=== PATIENT | male | born 1975 | race Caucasian/White ===

== ENCOUNTER 2024-12-29 08:17 | Outpatient (AMB) | payer OTHER, SELFPAY ==
--- NOTE | 2024-12-29 08:19 | MHC.PC.OV ---
Vital Signs 12/29/24 08:29 Height 5 ft 11 in Weight 248 lb 6 oz BMI 34.6 BP 122/72 Blood Pressure Location Rt brachial Position Sitting Respiration 12 Pulse 73 Pulse Source Pulse Oximeter Temp 97.2 F Temp Source Oral Pulse Oximetry (%) 98 Oxygen Delivery Method Room Air Intake Visit Reasons: Est. Care / Requesting an Appt. PHQ-9 needed. Intake Note: New patient to establish care Regulatory Agency Director Required: No Allergies No Known Allergies Allergy (Verified 12/29/24 08:57) Medication List - Last Reviewed 12/29/24 by Shree Simons MA acetaminophen 650 mg PO Q4H PRN alcohol swabs (Alcohol Prep Pads) pad topical BID blood sugar diagnostic (FreeStyle Lite Strips) USE DIRECTED TO TEST BLOOD SUGAR TWO TIMES A DAY blood sugar diagnostic (FreeStyle Lite Strips) As directed blood-glucose meter (FreeStyle [place] Lite kit) As directed buprenorphine-naloxone 8-2 mg (Suboxone) 2 film sublingual DAILY glipizide 2.5 mg PO lancets (FreeStyle Lancets) As directed lancets (FreeStyle Lancets) As directed metformin 1,000 mg PO BID tamsulosin 0.4 mg PO DAILY Tobacco use date assessed: 12/29/24 Dental Screening Dental Screen Date: 12/29/24 Did you have a dental visit in the last 12 months?: No Did you have a dental problem in the last 6 months where you did not have access to dental care?: No Was dental information given to patient?: Patient has dentist HPI HPI Comments History of Present Illness Details 49 y/o M with DM2 uncontrolled, Obesity, urethral stricture, BPH, bladder outlet obstruction, hx of necrotizing fasciitis of perineum and thigh requiring debridement x 5, bilat hydrocele, nephrolithiasis, suboxone use, diabetic neuropathym CAD, umbilical hernia Surgery: Debridements Social: Not working, states disabled from low back and foot pain; reports learning disability. Fhx: No sig. family hx. Health Maintenance Colon cologuard ordered today Tdap 2012 Specialist Urology last visit reviewed; next visit 02/23/2025 endo at [facility] , last visit 10/2024, reviewed, next visit 01/2025 Optho referred today for DM Eye Exam History of Present Illness - The patient is a 49-year-old male presenting to [facility] care for a routine physical examination and chronic dz mgmt - Type 2 Diabetes Mellitus with current A1c at 6.2 indicating improved control after previous level >14. Active w/ Endo @ [facility] - Peripheral neuropathy with tingling and numbness BLE,worse LLE, wearing DM socks. - History of necrotizing fasciitis in the perineum from uncontrolled diabetes. Resolved with skin healing, no infection signs. Active w/ Uro - Benign Prostatic Hyperplasia leading to bladder outlet obstruction, managed with tamsulosin. - Previous opioid dependence; undergoing Suboxone maintenance therapy since 2011 - Diagnosed anxiety and depression, with counseling engagement. Not currently on meds - Due for tetanus booster; declined - Referred for diabetic eye exam and colon cancer screening kit. - Previous excessive intake of sugary beverages addressed, corrected with improved diabetes management. Past Surgical History - No specific surgeries mentioned other than those related to necrotizing fasciitis and fall recovery. Family History - Negative for cancer in parents. Social History - The patient is disabled due to back, leg, and foot issues. - History of a severe fall contributing to current disability. - Suboxone maintenance for previous opioid dependence. - Current nutritional improvements with reduced intake of sugar-sweetened beverages. - Advised to wear compression socks daily for leg swelling. - No further career or educational pursuits noted. Health Maintenance - Referral for diabetic eye exam placed; to be scheduled. - Colon cancer screening via home test kit arranged. - Encouraged to update tetanus immunization due to lapsed status. - Dietary improvements discussed to support diabetes management. - Advised on consistent use of compression socks to manage leg swelling. Review of Systems - Constitutional: Reports improvement in glycemic control, Denies ongoing hyperglycemia. - Eyes: Denies completing recent diabetic eye exam. - Musculoskeletal: Reports leg swelling, history of severe fall impacts. - Neurological: Reports peripheral neuropathy symptoms like tingling in feet, - Psychiatric: Reports anxiety and depression, assisted by counseling. - Endocrine: Denies new symptoms of diabetes-related complications. - : Reports obstructive urinary symptoms managed with medication. Physical Exam General: Well developed, well nourished, in no acute distress. Appears stated age. Head: Normocephalic, atraumatic. Eyes: Pupils are equal, round and reactive to light and accommodation. Conjunctivae are clear. Vision grossly normal. Ears: TMs clear AU, EACS WNL Nose: Patent, without discharge. Neck: Supple, no adenopathy or thyromegaly. Breast: Edu on SBE Lungs: Clear to auscultation bilaterally. No rales, rhonchi or wheeze noted. Good air flow in all momin. Heart: Regular rate and rhythm. No murmurs, click, rubs or gallops are noted. Abdomen: Bowel sounds present in all quadrants. The abdomen is soft, nontender, with no masses or organomegaly noted. Small umbilical hernias noted. : Deferred. Reviewed ZIA & recommendations Pulses: Peripheral pulses are equal and palpable bilaterally. Varicosities BLE worse on LLE. Skin intact Extremities: No clubbing, cyanosis noted. Chronic swelling in the left side noted +1, (US 10/2024 negative DVT). Neurologic: Gait and station normal. Cranial Nerves 2-12 intact. Motor strength grossly symmetrical and intact. No sensory loss. Balance normal. Diabetic neuropathy noted abnormal vibratory and monofilament bilat Skin: No rashes, ulcers, or lesions noted. Turgor is good. Skin color is good. Hair and nails are without abnormalities. Psych: Normal eye contact, affect and mood appropriate, and normal interactions. Patient is alert and appropriate to context. Results - Labs: A1c of 6.2, indicating improved glycemic control. - Tests: Cr and GFR 10/2024 via Endo WNL - Diagnostics: Sensory test consistent with peripheral neuropathy; diminished sensation. Discussion Notes During our visit, I discussed with the patient the importance of maintaining glycemic control to prevent further complications such as neuropathy and infections. We reviewed his current medication regimen, ensuring alignment with his diabetes and urology care providers. I emphasized the need for regular screenings, including a diabetic eye exam and colon cancer screening, and coordinated referrals accordingly. We talked about his weight and dietary habits, focusing on the necessity to sustain lowered sugar intake to achieve desired A1c levels and prevent recurrent hyperglycemia-related complications. The patient?s anxiety and depression scores were acknowledged, with recommendations to continue his therapeutic visits. Since only routine follow-ups were needed, specific consents were not required. Assessment and Plan 1. Type 2 Diabetes Mellitus - Continue diabetes management, emphasize lifestyle changes. Optho referral placed 2. Peripheral Neuropathy - Recommend use of compression socks. - DM control - Foot care 3. Necrotizing Fasciitis History - Active w uro; ? referral to plastics 4. Benign Prostatic Hyperplasia - Continue tamsulosin as managed by urology. 5. Opioid Use Disorder, in remission - Maintain current Suboxone dose. 6. Anxiety and Depression - Continue mental health services. - refer to [facility] for counseling 7. Declined tdap, cologaurd ordered 8. Refered to vascular for PVD and edema of LLE. 9. Start atorvastatin 20mg QD d/t DM and CAD RTO 1 YEAR CPE, SOONER PRN Consent Patient was informed and verbally consented to the use of an ambient scribe for clinic note documentation during this visit. An additional 60 minutes was spent addressing the problem(s) noted at todays visit. This includes time spent before the visit reviewing the chart, time spent during the visit, and time spent after the visit on documentation reviewing laboratory results, diagnostic imaging, medications, performing a medically necessary evaluation, counseling on diagnoses, care coordination, ordering appropriate tests, ordering appropriate medications, review of tests performed by other providers, reporting test results with the patient, communication with other healthcare providers. [facility] Medical History (Updated 12/29/24 @ 09:29 by Angella Conner [facility]) Diabetes Nephrolithiasis Family History (Updated 12/29/24 @ 08:38 by Shree Simons MA) Mother Diabetes Father Diabetes Sister Diabetes Substance abuse Brother Diabetes Substance abuse Social History (Updated 12/29/24 @ 08:37 by Shree Simons MA) Household Members: Spouse and Children Both parents involved: No Caregiver staying overnight: No Housing: Apartment Are you a primary small animal caretaker to a significant other at home: No Do you presently have visiting nurse or other home services: No 75 years or older and lives alone: No Alcohol intake: never Patient Tobacco Use Status: Never used Tobacco e-Cigarette/Vaping Use: Never Used Second Hand Smoke Exposure: No service: No Current occupational status: disabled Current occupational exposures/hazards: No Cognitive needs: No Hearing needs: No Vision needs: No Questionnaire PHQ-9 Over the last 2 weeks, how often have you been bothered by any of the following problems? 1. Little interest or pleasure in doing things: more than half the days 2. Feeling down, depressed, or hopeless: more than half the days 3. Trouble falling or staying asleep, or sleeping too much: more than half the days 4. Feeling tired or having little energy: more than half the days 5. Poor appetite or overeating: more than half the days 6. Feeling bad about yourself - or that you are a failure or have let yourself or your family down: several days 7. Trouble concentrating on things, such as reading the newspaper or watching television: several days 8. Moving or speaking so slowly that other people could have noticed. Or the opposite - being so fidgety or restless that you have been moving around a lot more than usual: several days 9. Thoughts that you would be better off or of hurting yourself in some way: not at all Total score: 13 Depression Screening Interpretation: Positive Depression Screening Follow-up: Existing condition and Community Mental Health Worker F/U Depression Screening Done: Yes 98317 - PHQ-9 Billing: Yes Source: Developed by Drs. Thomas Sierra, Domonique Jose, William Woodall and colleagues, with an educational jose from [employer]. Thrive Questionnaire Date Thrive assessed: 12/29/24 I am a: Patient What is your living situation today?: I have a steady place to live Within the past 12 months, did the food you bought not last and you didn't have the money to get more?: Sometimes True Within the past 12 months, did you worry whether your food would run out before you got money to buy more?: Sometimes True Do you have trouble paying for medicines?: No Do you have trouble getting transportation to medical appointments?: No Do you have trouble paying your heating and electricity bill?: No Do you have trouble taking care of your child, family member or friend?: No Do you have trouble with day-to-day activities such as bathing, preparing meals, shopping, managing finances, etc.?: No Are you currently unemployed and looking for a job?: No Are you interested in more education?: No Please select the resources that you would like help with: None Currently or been in a relationship where the following occur: No concerns reported THRIVE Score: 2 AUDIT C Alcohol Use Questionnaire (AUDIT-C) 1. How often do you have a drink containing alcohol?: Never 3. How often do you have six or more drinks on one occasion?: Never Total Score: 0 Score Reviewed/Action Taken: Yes ARON-7 AMB Questionnaire ARON-7 Date ARON - 7 assessed: 12/29/24 Feeling nervous, anxious, or on edge: 2 = More than half the days Not being able to stop or control worryin = Several days Worrying too much about different things: 1 = Several days Trouble relaxin = More than half the days Being so restless that it is hard to sit still: 1 = Several days Becoming easily annoyed or irritable: 1 = Several days Feeling afraid as if something awful might happen: 1 = Several days Total ARON-7 score (0-4 normal; 5-9 mild; 10-14 moderate; 15-21 severe): 9 Source: Developed by Drs. Thomas Sierra, Domonique Jose, William Woodall and colleagues, with an educational jose from [employer]. ARON-7 Assessment Billing ARON-7 Assessment Tool: ARON-7 Assessment 15825 Physical exam (Primary Care) Vital Signs: Last Vital Signs Temp 97.2 F 12/29/24 08:29 Pulse 73 12/29/24 08:29 Resp 12 12/29/24 08:29 BP 122/72 12/29/24 08:29 Pulse Ox 98 12/29/24 08:29 Oxygen Delivery Method Room Air 12/29/24 08:29 BMI result Body Mass Index 34.6 BMI Assessment/Plan discussion: High BMI High, discussed plan: lifestyle Tobacco/Smoking Status: Tobacco use Status Tobacco use date assessed 12/29/24 12/29/24 08:23 Patient Tobacco Use Status Never used Tobacco 12/29/24 08:37 e-Cigarette/Vaping Use Never Used 12/29/24 08:37 PHQ-9: PHQ-9 Score PHQ-9: Total score 13 12/29/24 08:23 Depression Screening Interpretation: Positive Depression Screening Follow-up: Existing condition and Community Mental Health Worker F/U Thrive Assessment: Date of Thrive Assessment Date Thrive assessed 12/29/24 12/29/24 08:23 Currently or been in a relationship where the following occur: No concerns reported Office Procedures Diabetic Foot Exam G9226 - Diabetic Foot Exam Results AMB Hemoglobin A1c AMB Hemoglobin A1c 6.2 % Last Edit by Shree Simons MA on 12/29/24 08:40 Results Reviewed Results Reviewed: Laboratory Last Values Hgb A1c (Clinic) 6.2 % (4.0-6.0) H 12/29/24 08:33 Coding Level of Care Code New Pt Level 5 (33770) New Pt Prev Care 40-64y(14816) Diagnoses Encounter to establish care Z76.89 Diabetes mellitus type 2 with complications E11.8 BPH loc w urin obs/LUTS N40.1 Opioid dependence, in remission F11.21 ARON (generalized anxiety disorder) F41.1 Moderate episode of recurrent major depressive disorder F33.1 Major depression episode severity: moderate Necrotizing fasciitis of scrotum and perineum M72.6 Tetanus, diphtheria, and acellular pertussis (Tdap) vaccination declined Z28.21 PVD (peripheral vascular disease) I73.9 Obesity (BMI 30-39.9) E66.9 Swelling of left lower extremity M79.89 Coronary artery disease involving [place] coronary artery of [place] heart without angina pectoris I25.10 Coronary Disease-Associated Artery/Lesion type: [place] artery [place] vs. transplanted heart: [place] heart Associated angina: without angina Encounter for screening involving social determinants of health (SDoH) Z13.9 Encounter for general adult medical examination with abnormal findings Z00.01 CPT Codes Diabetic Foot Exam - CPT: G9226 - Diabetic Foot Exam ([id number]) Additional Codes ARON-7 Assessment Billing - ARON-7 Assessment Tool: ARON-7 Assessment 84606 ([id number]) PHQ-9 - 56928 - PHQ-9 Billing: Yes ([id number]) Assessment & Plan Assessment & Plan (1) Encounter to establish care: Code(s): Z76.89 - Persons encountering health services in other specified circumstances (2) Diabetes mellitus type 2 with complications: Comment: neuropathy and CAD Managed by [facility] Code(s): E11.8 - Type 2 diabetes mellitus with unspecified complications Category: Medical (3) BPH loc w urin obs/LUTS: Code(s): N40.1 - Benign prostatic hyperplasia with lower urinary tract symptoms Category: Medical (4) Opioid dependence, in remission: Comment: sober since 2011 [facility] Code(s): F11.21 - Opioid dependence, in remission Category: Medical (5) ARON (generalized anxiety disorder): Code(s): F41.1 - Generalized anxiety disorder Category: Medical (6) MDD (major depressive disorder), recurrent episode: Code(s): F33.9 - Major depressive disorder, recurrent, unspecified Category: Medical Qualifiers: Major depression episode severity: moderate Qualified Code(s): F33.1 - Major depressive disorder, recurrent, moderate (7) Necrotizing fasciitis of scrotum and perineum: Onset Date: ~10/2024 Code(s): M72.6 - Necrotizing fasciitis Category: Medical (8) Tetanus, diphtheria, and acellular pertussis (Tdap) vaccination declined: Code(s): Z28.21 - Immunization not carried out because of patient refusal Category: Medical (9) PVD (peripheral vascular disease): Code(s): I73.9 - Peripheral vascular disease, unspecified Category: Medical (10) Obesity (BMI 30-39.9): Code(s): E66.9 - Obesity, unspecified Category: Medical (11) Swelling of left lower extremity: Code(s): M79.89 - Other specified soft tissue disorders Category: Medical (12) CAD (coronary artery disease): Comment: mild noted on ct pelvis 09/2024 Code(s): I25.10 - Atherosclerotic heart disease of [place] coronary artery without angina pectoris Category: Medical Qualifiers: Coronary Disease-Associated Artery/Lesion type: [place] artery [place] vs. transplanted heart: [place] heart Associated angina: without angina Qualified Code(s): I25.10 - Atherosclerotic heart disease of [place] coronary artery without angina pectoris (13) Encounter for screening involving social determinants of health (SDoH): Code(s): Z13.9 - Encounter for screening, unspecified Category: Medical (14) Encounter for general adult medical examination with abnormal findings: Onset Date: ~12/29/24 Code(s): Z00.01 - Encounter for general adult medical examination with abnormal findings Category: Medical Plan . Orders: Orders AMB Hemoglobin A1c Today Z13.9 - Encounter for screening, unspecified Referrals Nurse Navigator Referral F33.9 - Major depressive disorder, recurrent, unspecified, F41.1 - Generalized anxiety disorder, Z13.9 - Encounter for screening, unspecified Ophthalmology Referral E11.8 - Type 2 diabetes mellitus with unspecified complications Cologuard Test Z12.11 - Encounter for screening for malignant neoplasm of colon, Z12.12 - Encounter for screening for malignant neoplasm of rectum Vascular Surgery Referral I73.9 - Peripheral vascular disease, unspecified, M79.89 - Other specified soft tissue disorders Medications: New atorvastatin (Lipitor) 20 mg PO BEDTIME 90 tabs 2RF Patient Instructions: Patient Instructions - Wear compression socks daily for leg swelling. - Schedule the diabetic eye exam soon. - Complete colon cancer screening home test upon receipt. - Update tetanus shot at the earliest opportunity. - Maintain reduced sugar intake -Vascular referral for swelling in lower leg - Continue all medications - Return in 1 year for physical, sooner as needed. Walk-In Care (Urgent Care): We Make it Easy Walk-in for urgent medical issues such as: ? Seasonal Allergies ? Insect Bites ? Cough ? Diarrhea ? Acute Asthma Attacks ? Back, Knee or Joint Pain ? Ear Infection ? Fever without a Rash ? Headaches ? Nausea ? [place] [facility], Rash or Skin Irritation ? Sore Throat ? Sports Physicals ? Vomiting Most insurances are accepted. Patients do not need to be part of the [facility] to seek care at the walk-in clinic. Locations [facility] , [place] [address] ? [phone] [facility] Walk-In Care in [place] provides services to ages 18 and over. Open Sunday-Sunday: 8 a.m. to 5 p.m. and Sunday: 9 a.m. to 3 p.m.* *Hours may vary due to staffing availability. To confirm Walk-In Care hours in [place], please call [phone]. [address] [place] [address] ? [phone] [facility] in [place] provides services to ages 12 and over. Open Sunday-Sunday: 8 a.m. to 5 p.m. Hours may vary due to staffing availability. To confirm Walk-In Care hours in [place], please call [phone]. LABORATORY SERVICES: [facility] Lab ? Primary Location [address] [place] [address] Sunday through Sunday 6:00 AM ? 5:00 PM Sunday 7:00 AM ? 11:00 AM* [phone] The [facility] Lab is centrally located near the front entrance of the [facility] for easy outpatient access. Convenient parking is provided for outpatients. *Hours may vary due to staffing availability. To confirm Laboratory hours for any location, please call [phone]. Offsite Location For your convenience, we offer offsite laboratory draw stations at the following locations: [address] [facility], [place] [address] [facility], [address], [place] Sunday through Sunday 7:30 AM ? 1:00 PM* [phone] *Hours may vary due to staffing availability. To confirm Laboratory hours for any location, please call [phone]. [place] ? [facility] [address] [facility], [place] Sunday through Sunday 6:00 AM ? 3:30 PM* Sunday 6:30 AM ? 3 PM* [phone] *Hours may vary due to staffing availability. To confirm Laboratory hours for any location, please call [phone]. [address] [facility] Sunday through Sunday 7:30 AM ? 4:00 PM* [phone] *Hours may vary due to staffing availability. To confirm Laboratory hours for any location, please call [phone] [place] [address] Sunday through 9:00 AM ? 4:00 PM* *Hours may vary due to staffing availability. To confirm Laboratory hours for any location, please call [phone]. Appointments are not necessary. Walk-ins are welcome. Like all the departments throughout the [facility], our Lab undergoes frequent reviews to ensure the quality and accuracy of test results, and our staff takes special pride in its status as a nationally accredited facility. Patient Portal: ONE PATIENT. ONE RECORD. BETTER CARE. [facility] has a fully integrated, cutting-edge mobile electronic health information system that has revolutionized the way we care for our patients and manage our organization. This system improves communication and coordination enabling us to provide safe, higher-quality care, and an overall positive experience for staff and patients. Our first priority, as always, is to deliver the highest quality care possible. The system is running in the background supporting that priority. This portal is for all [facility] services and practices. If you are experiencing any technical difficulties with enrolling or logging into the Patient Portal please complete the [facility] Patient Portal Technical Support Form. [facility] now offers a new secure on-line interactive tool for patients to review their health information ? ?Patient Portal. This interactive web portal will enable patients and their families to take an active role in their care by providing easy, secure access to their health information via the internet. The Patient Portal provides patients with instant access to their health information, including laboratory results, medications, allergies, demographic information, visit history, and more. In addition to managing their own care, parents and health care proxies with authorized consent will appreciate the ability to access the records of those individuals for whom they provide care. Please note: if you wish to gain access (Proxy) to another patient?s portal, you will be required to come to the Medical Records Department in person at [facility]. Both the patient giving proxy access and the proxy will need to provide photo identification and complete the appropriate authorization. The Patient Portal also allows track their appointments online. The [facility] Patient Portal also saves patients time by allowing them to submit updates to their demographic and contact information prior to their visits. Portal email notifications will also alert patients to any new activity on their portal, such as test results and new appointments. In order to initially enroll in the [facility] Patient Portal, you will need to enter some required information including the following: your [facility] Medical Record number your personal home email address name date of Please note: In order to enroll in the [facility] Patient Portal, we need to have your email address on file in your electronic medical record. ?The email address needs to be specific for one person (yourself) in order for your Portal enrollment to be successful. ?You can update your email address in person with our Registration staff when you are registering for a hospital visit. ?Otherwise, you will need to come to the Health Information Management (Medical Records) Department at [facility]. ?We are open from Sunday ? Sunday from 7:30 a.m. ? 4:30 p.m. ?You will be required to present a photo id. Once you have successfully enrolled in the Patient Portal, you will receive a one-time user id and password for the Portal, sent to your email address. ?This will allow you to log into the Patient Portal within 99 hrs and reset your own logon id and password, and define personal security questions. ?Once your permanent login and password have been set, you can log into the [facility] Patient Portal at any time via the blue button above or from the Portal Logon button on any page of the [facility] website. [facility] and [facility] encourage all of our patients to enroll in Patient Portal as it presents a valuable opportunity for patients and their families to actively participate in their care and stay healthy Welcome to [facility]. ?We look forward to working with you. Health screenings for men You should visit your health care provider regularly, even if you feel healthy. The purpose of these visits is to: Screen for medical issues Assess your risk for future medical problems Encourage a healthy lifestyle Update vaccinations and other preventive care services Help you get to know your provider in case of an illness Information Even if you feel fine, you should still see your provider for regular checkups. These visits can help you avoid problems in the future. For example, the only way to find out if you have high blood pressure is to have it checked regularly. High blood sugar and high cholesterol level also may not have any symptoms in the early stages. Simple blood tests can check for these conditions. There are specific times when you should see your provider or receive specific health screenings. The [place] Preventive Services Task Force publishes a list of recommended screenings. Below are screening guidelines for men ages 40 to 64. BLOOD PRESSURE SCREENING Have your blood pressure checked at least once every year. Watch for blood pressure screenings in your area. Ask your provider if you can stop in to have your blood pressure checked. Ask your provider if you need your blood pressure checked more often if: You have diabetes, heart disease, kidney problems, or are overweight or have certain other health conditions You have a first-degree relative with high blood pressure You are Black Your blood pressure top number is from 120 to 129 mm Hg, or the bottom number is from 70 to 79 mm Hg If the top number is 130 mm Hg or greater or the bottom number is 80 mm Hg or greater, this is considered stage 1 hypertension. Schedule an appointment with your provider to learn how you can lower your blood pressure. Effects of age on blood pressure CHOLESTEROL SCREENING Cholesterol screening should begin at age 35 for men with no known risk factors for coronary heart disease. Repeat cholesterol screening should take place: Every 5 years for men with normal cholesterol levels More often if changes occur in lifestyle (including weight gain and diet) More often if you have diabetes, heart disease, kidney problems, or certain other conditions COLORECTAL CANCER SCREENING If you are under age 45, talk to your provider about getting screened. You may need to be screened if you have a strong family history of colon cancer or polyps. Screening may also be considered if you have risk factors such as a history of inflammatory bowel disease or polyps. If you are age 45 to 75, you should be screened for colorectal cancer. There are several screening tests available: A stool-based fecal occult blood (gFOBT) or fecal immunochemical test (FIT) every year A stool sDNA test every 1 to 3 years Flexible sigmoidoscopy every 5 years or every 10 years with stool testing FIT done every year CT colonography (virtual colonoscopy) every 5 years Colonoscopy every 10 years You may need a colonoscopy more often if you have risk factors for colorectal cancer, such as: Ulcerative colitis A personal or family history of colorectal cancer A history of growths in your colon called adenomatous polyps DENTAL EXAM Go to the dentist once or twice every year for an exam and cleaning. Your dentist will evaluate if you have a need for more frequent visits. DIABETES SCREENING All adults who do not have risk factors for diabetes should be screened starting at age 35 and repeated every 3 years. If you have other risk factors for diabetes, such as a first degree relative with diabetes, overweight or obesity, high blood pressure, prediabetes, or a history of heart disease, you may be tested more often. If you are overweight and have other risk factors, such as high blood pressure and are planning to become , screening is recommended. EYE EXAM Have an eye exam every 2 to 4 years ages 40 to 54 and every 1 to 3 years ages 55 to 64. Your provider may recommend more frequent eye exams if you have vision problems or glaucoma risk. Have an eye exam that includes an examination of your retina (back of your eye) at least every year if you have diabetes. IMMUNIZATIONS Commonly needed vaccines include: Flu shot: get one every year COVID-19 vaccine: ask your provider what is best for you Tetanus-diphtheria and acellular pertussis (Tdap) vaccine: have as one of your tetanus-diphtheria vaccines if you did not receive it as an adolescent Tetanus-diphtheria: have a booster (or Tdap) every 10 years Varicella vaccine: receive 2 doses if you never had chickenpox or the varicella vaccine and were born in 1979 or after Hepatitis B vaccine: receive 2, 3, or 4 doses, depending on your exact circumstances, if you did not receive these as a child or adolescent, until age 59 Shingles (herpes zoster) vaccine: at or after age 50 Ask your provider if you should receive other immunizations, especially if you have certain medical conditions, such as diabetes or are at increased risk for some diseases such as pneumonia. INFECTIOUS DISEASE SCREENING Screening for hepatitis C: all adults ages 18 to 79 should get a one-time test for hepatitis C. Screening for human immunodeficiency virus (HIV): all people ages 15 to 65 should get a one-time test for HIV. Depending on your lifestyle and medical history, you may need to be screened for infections such as syphilis, chlamydia, and other infections. LUNG CANCER SCREENING You should have an annual screening for lung cancer with low-dose computed tomography (LDCT) if: You are age 50 to 80 years AND You have a 20 pack-year smoking history AND You currently smoke or have quit within the past 15 years OSTEOPOROSIS SCREENING If you are age 50 to 64 and have risk factors for osteoporosis, you should discuss screening with your provider. Risk factors can include long-term steroid use, low body weight, smoking, heavy alcohol use, having a fracture after age 50, or a family history of hip fracture or osteoporosis. Osteoporosis PHYSICAL EXAM All adults should visit their provider from time to time, even if they are healthy. The purpose of these visits is to: Screen for diseases Assess risk of future medical problems Encourage a healthy lifestyle Update vaccinations and other preventive care services Maintain a relationship with a provider in case of an illness Your height, weight, and body mass index (BMI) should be checked at every exam. During your exam, your provider may ask you about: Depression and anxiety Diet and exercise Alcohol and tobacco use Safety, such as use of seat belts and smoke detectors Your medicines and risk for interactions PROSTATE CANCER SCREENING If you're 55 through 69 years old, before having the test, talk to your provider about the pros and cons of having a PSA test. Ask about: Whether screening decreases your chance of dying from prostate cancer. Whether there is any harm from prostate cancer screening, such as side effects from testing or overtreatment of cancer when discovered. Whether you have a higher risk of prostate cancer than others. If you are age 55 or younger, screening is not generally recommended. You should talk with your provider about if you have a higher risk for prostate cancer. Risk factors include: Having a family history of prostate cancer (especially a brother or father) Being If you choose to be tested, the PSA blood test is repeated over time (yearly or less often), though the best frequency is not known. Prostate examinations are no longer routinely done on men with no symptoms. Prostate cancer SKIN EXAM Your provider may check your skin for signs of skin cancer, especially if you're at high risk. People at high risk include those who have had skin cancer before, have close relatives with skin cancer, or have a weakened immune system. TESTICULAR EXAM The [place] Preventive Services Task Force (USPSTF) now recommends against performing testicular self-exams. Doing testicular self-exams has been shown to have little to no benefit.
[2024-12-29 08:29] VITALS: BP 122/72; PULSE 73; RESP 12; TEMP 36.2; O2SAT 98; BMI 34.6
== END 2024-12-29 09:15 | disposition home or self-care (01) ==
PROVIDERS: PCP Nurse Practitioner Family; Visit Provider Nurse Practitioner Family
DX: Z00.01 Encounter for general adult medical examination with abnormal findings (principal); E11.8 Type 2 diabetes mellitus with unspecified complications; F11.21 Opioid dependence, in remission; F33.1 Major depressive disorder, recurrent, moderate; M72.6 Necrotizing fasciitis; N40.1 Benign prostatic hyperplasia with lower urinary tract symptoms; F41.1 Generalized anxiety disorder; Z28.21 Immunization not carried out because of patient refusal; I73.9 Peripheral vascular disease, unspecified; E66.9 Obesity, unspecified; M79.89 Other specified soft tissue disorders; I25.10 Atherosclerotic heart disease of native coronary artery without angina pectoris

== ENCOUNTER → 2024-12-29 08:17 | Outpatient (BNVA) | payer OTHER, SELFPAY | PROVIDERS: PCP Nurse Practitioner Family; Visit Provider Nurse Practitioner Family | DX: Z00.01 Encounter for general adult medical examination with abnormal findings (principal); E11.40 Type 2 diabetes mellitus with diabetic neuropathy, unspecified; E11.51 Type 2 diabetes mellitus with diabetic peripheral angiopathy without gangrene; I25.10 Atherosclerotic heart disease of native coronary artery without angina pectoris; F11.21 Opioid dependence, in remission; N40.1 Benign prostatic hyperplasia with lower urinary tract symptoms; F41.1 Generalized anxiety disorder; F33.1 Major depressive disorder, recurrent, moderate; M72.6 Necrotizing fasciitis; M79.89 Other specified soft tissue disorders; Z76.89 Persons encountering health services in other specified circumstances; Z28.21 Immunization not carried out because of patient refusal | CPT/HCPCS: 83036; 96127; 99202; 99386 ==

== ENCOUNTER 2025-04-23 09:15 | Outpatient (AMB) | payer OTHER, SELFPAY ==
--- NOTE | 2025-04-23 09:31 | MHC.OFFVIS ---
Vital Signs 04/23/25 09:32 Height 5 ft 11 in Intake Visit Reasons: FAMILY COACH/PCP referral for PVD/ LE swelling Intake Note: FAMILY COACH/PCP referral for bilateral LE swelling. Left LE worse than the Right LE. Started this past spring when he developed a wound and was hospitalized w/ numerous debridements. Left foot discoloration and swelling and burning.Pt states he gets severe cramping in the left calf at night only. Telecommunications Sales Representative Required: No Accompanied by: Spouse Allergies No Known Allergies Allergy (Verified 04/23/25 09:38) HPI HPI FAMILY COACH/PCP referral for PVD/ LE swelling: Details: The patient is a 50 year old individual presenting for evaluation of lower extremity swelling, pain, and a burning sensation. The patient reports the left leg is more swollen than the right and experiences associated foot and toe pain. A burning sensation and some swelling were present prior to September of this year. In September of this year, the patient was hospitalized for a severe groin infection, initially mistaken for a hemorrhoid, and was diagnosed with necrotizing fasciitis. The patient was treated at [facility] for a couple of weeks and underwent several surgeries. During this hospitalization, the patient was also newly diagnosed with diabetes mellitus. After returning home, the patient experienced significant total body swelling and was re-hospitalized. The patient has tried compression socks, which initially provided relief from the swelling, but no longer notices a significant difference with their use. The patient experiences pain with walking, sometimes worse than others, located around the ankles and on the bottom of the foot. Additionally, the patient reports toes locking up, severe nocturnal leg cramps that cause the patient to wake up screaming. Last hemoglobin A1c was 6.2 It has been affecting there daily activities including walking. It is noted more so in left leg. Patient denies any previous venous surgery or injections. Patient denies any history of DVT/ PE. Patient denies any history of phlebitis. Trial of compression includes - [id number] They now present for vascular evaluation regarding their varicose veins. [facility] Medical History Nephrolithiasis Diabetes Family History Mother Diabetes Father Diabetes Sister Diabetes Substance abuse Brother Diabetes Substance abuse Social History (Updated 04/23/25 @ 09:39 by Magdalena Chaudhry [facility]) Household Members: Spouse and Children Both parents involved: No Caregiver staying overnight: No Housing: Apartment Are you a primary client care coordinator to a significant other at home: No Do you presently have visiting nurse or other home services: No 75 years or older and lives alone: No Alcohol intake: never Patient Tobacco Use Status: Current everyday Tobacco user Cigarette Packs Per Day: 1.5 e-Cigarette/Vaping Use: Never Used Second Hand Smoke Exposure: No service: No Current occupational status: disabled Current occupational exposures/hazards: No Cognitive needs: No Hearing needs: No Vision needs: No Review of Systems Const Reports as per HPI ENT Reports no additional complaints Card Denies chest pain, Denies chest pain at rest and Denies chest pain with activity Resp Denies chest congestion and Denies cough GI Reports no additional complaints Musc Details: pain over varicosities, aching of lower extremities, swelling, cramping, heaviness and tiredness, itching Denies abnormal gait Skin/Breast Reports pruritus and Denies wounds Neuro Reports no additional complaints and Denies abnormal gait Psych Denies no additional complaints Physical Exam Const General: cooperative, healthy appearing and comfortable Orientation/consciousness: oriented to person, oriented to place and oriented to time Neck Carotids: no bruits Chest Chest palpation & inspection: normal inspection of the chest and normal palpation of entire chest wall Resp Effort & Inspection: normal respiratory effort and able to speak in complete sentences Cardio Rate: regular rate Heart sounds: S1 normal heart sound present and S2 normal heart sound present Peripheral pulses: Peripheral pulses 2+ throughout GI Inspection: Yes normal to inspection Skin Other: +2 edema, large rope-like varicosities greater than 4 mm CEAP Classification C4 - skin color changes Ep - Etiology Primary As - superficial veins P - reflux General skin exam: dry skin Neuro General: oriented to person, oriented to place and oriented to time Extrem Right lower extremity: full ROM, normal capillary refill and edema Left lower extremity: full ROM, normal capillary refill and edema Psych Mental Status: mental status grossly normal Assessment & Plan Assessment & Plan (1) Varicose veins of left lower extremity with inflammation: Code(s): I83.12 - Varicose veins of left lower extremity with inflammation Category: Medical Plan: In short, the patient has evidence of venous insufficiency. I have discussed the pathophysiology with the patient. In addition I have provided informational material regarding venous disease to the patient. We have discussed conservative measures including compression, elevation, and exercise. I have also provided a handout regarding appropriate use of compression stockings and where to purchase good compression stockings as well. I have taken the liberty of ordering venous insufficiency testing with the patient. They will follow up with me after testing. The patient had an opportunity to ask questions regarding the treatment plan. All questions were answered. Imaging studies, laboratory studies and physical exam results were discussed and reviewed in detail. No major barriers to understanding were identified. The patient expressed understanding and agreement with the above treatment plan. The patient is aware they should contact our office by phone for worsening of the current condition or the appearance of new symptoms. Thank you for allowing me to participate in the vascular care of this patient. If you have any questions or concerns regarding the treatment for the above condition please do not hesitate to contact me. The office telephone contact is [phone]. This note is constructed using voice recognition software. While every effort has been made to ensure accuracy, electrode turner and finisher errors may have been included. Thank you for allowing me to participate in the care of your patient. Yours sincerely, Joshua Ford MD, FACS, R.P.V.I. (2) Lymphedema: Code(s): I89.0 - Lymphedema, not elsewhere classified Category: Medical Plan: In addition the patient has an element of lymphedema. This is by the mere nature of his previous scrotal necrotizing fasciitis and multiple operations. We will treat venous disease 1st and then work him up for lymphedema. Thank you for allowing us to assist in his care. Orders: Orders US venous duplex LE BI Today I83.12 - Varicose veins of left lower extremity with inflammation Coding Level of Care Code New Pt Level 4 (01824) Diagnoses Varicose veins of left lower extremity with inflammation I83.12 Lymphedema I89.0
== END 2025-04-23 09:55 | disposition home or self-care (01) ==
LOC: HO.HVS 09:16
PROVIDERS: PCP Nurse Practitioner Family; Visit Provider Surgery Vascular Surgery
DX: I83.12 Varicose veins of left lower extremity with inflammation (principal); I89.0 Lymphedema, not elsewhere classified
CPT/HCPCS: 99204

== ENCOUNTER → 2025-04-23 09:15 | Outpatient (BNVA) | payer OTHER, SELFPAY | PROVIDERS: PCP Nurse Practitioner Family; Visit Provider Surgery Vascular Surgery | DX: I83.12 Varicose veins of left lower extremity with inflammation (principal) | CPT/HCPCS: 99202 ==